=== PATIENT | male | born 1975 | race Caucasian/White ===

== ENCOUNTER 2016-12-10 04:37 | Inpatient (IN) | payer OTHER ==
[~2016-12-10] VITALS: Ht 177.8 cm; Wt 126.3 kg
[2016-12-10 05:15] LABS: HEMOGLOBIN 15.1 gm/dl (14.0-17.5); RED BLOOD COUNT 4.68 M/UL (4.20-5.50); WHITE BLOOD COUNT 15.5 K/UL (4.5-11.0)
[2016-12-10] MEDS ORDERED: TENORMIN 50 MG50 MG PO (21:07)
[2016-12-10] MEDS ORDERED: DICLOFENAC SODI75 MG PO (21:09)
[2016-12-10] MEDS ORDERED: TOPAMAX25 MG PO (21:11)
[2016-12-10] MEDS ORDERED: LORTAB 7.5-3251 EACH PO (21:12)
[2016-12-11 05:03] LABS: HEMOGLOBIN 12.6 gm/dl (14.0-17.5); RED BLOOD COUNT 3.94 M/UL (4.20-5.50)
[2016-12-11 05:08] LABS: BUN/CREATININE RATIO 8 (0-10)
[2016-12-12 05:56] LABS: HEMOGLOBIN 12.9 gm/dl (14.0-17.5); RED BLOOD COUNT 4.01 M/UL (4.20-5.50); WHITE BLOOD COUNT 11.4 K/UL (4.5-11.0)
[2016-12-12 07:31] LABS: BUN/CREATININE RATIO 6 (0-10)
[2016-12-12] MEDS ORDERED: LEVAQUIN750 MG PO (19:36)
[2016-12-12] MEDS ORDERED: LIPITOR TAB 2020 MG PO (19:37)
== END 2016-12-12 20:02 | disposition home or self-care (01) | DRG 871 ==
LOC: ER1 04:37 → ZEROF 09:53 → PROG CARE 09:53 → MED SURG 4 12-11 21:27
PROVIDERS: Emergency Medicine; ADMIT Internal Medicine
DX: A41.9 Sepsis, unspecified organism (principal); R65.21 Severe sepsis with septic shock; J96.01 Acute respiratory failure with hypoxia; N17.9 Acute kidney failure, unspecified; E86.0 Dehydration; R68.0 Hypothermia, not associated with low environmental temperature; I10 Essential (primary) hypertension; I27.2 Other secondary pulmonary hypertension; E78.5 Hyperlipidemia, unspecified; R07.89 Other chest pain; E83.51 Hypocalcemia; E66.9 Obesity, unspecified; Z68.39 Body mass index [BMI] 39.0-39.9, adult; G89.29 Other chronic pain; M54.5 Low back pain; M54.2 Cervicalgia; F17.210 Nicotine dependence, cigarettes, uncomplicated; R42 Dizziness and giddiness; F41.0 Panic disorder [episodic paroxysmal anxiety]; Z72.3 Lack of physical exercise; Z79.891 Long term (current) use of opiate analgesic; Z79.899 Other long term (current) drug therapy; Z88.0 Allergy status to penicillin; Z88.2 Allergy status to sulfonamides; Z98.1 Arthrodesis status; Z98.890 Other specified postprocedural states; Z82.49 Family history of ischemic heart disease and other diseases of the circulatory system; Z82.3 Family history of stroke
CPT/HCPCS: ECHO; 36415; 36600; 71010; 71020; 78452; 80048; 80053; 80061; 80202; 81001; 82550; 82553; 82803; 83036; 83605; 83735; 83874; 83880; 84484; 85025; 85610; 87040; 87081; 87086; 87278; 87880; 93005; 93017; 93306; 96361; 96372; 96374; 96375; 99291; A9502; C9113; J1650; J1956; J2405; J2543; J3370; J7030; J7040; J7050; J7070

== ENCOUNTER → 2016-12-19 | Outpatient (CLI) | payer OTHER ==
[~2016-12-19] MED LIST: DICLOFENAC SODI75 MG PO; LEVAQUIN750 MG PO; LIPITOR TAB 2020 MG PO; LORTAB 7.5-3251 EACH PO; TENORMIN 50 MG50 MG PO; TOPAMAX25 MG PO
== END ==
LOC: EMI 08:09
DX: M54.2 Cervicalgia (principal); M40.50 Lordosis, unspecified, site unspecified; M50.320 Other cervical disc degeneration, mid-cervical region, unspecified level
CPT/HCPCS: 72141